=== PATIENT | female | born 1960 | race African-American/Black ===

== ENCOUNTER 2020-01-22 06:22 | Day surgery (SDC) | payer OTHER, BC ==
[2020-01-14 11:23] VITALS: BMI 33.6
[2020-01-22] MEDS ORDERED: TRIAMCINOLONE ACET 40MG/1ML VIAL ONE (07:24)
[2020-01-22] MEDS ORDERED: EPINEPHrine 1:1,000 1 MG/1 ML - 30ML VIAL (INJECTION) ONE (07:24)
[2020-01-22] MEDS ORDERED: BUPIVACAINE HCL/PF 2.5 MG/ML - 30 ML VIAL IJ ONE (07:24)
[2020-01-22] MEDS ORDERED: ROCURONIUM BROMIDE 50 MG/5 ML SYRINGE ONE (07:26)
[2020-01-22] MEDS ORDERED: SUCCINYLCHOLINE CHLORIDE 200 MG/10 ML SYRINGE ONE (07:26)
[2020-01-22] MEDS ORDERED: PROPOFOL 20 ML ONE ×2 (07:26)
[2020-01-22] MEDS ORDERED: EPHEDRINE SULFATE/0.9% NACL/PF 50 MG/10 ML SYRINGE NR ONE (07:26)
[2020-01-22] MEDS ORDERED: DEXAMETHASONE SOD PHOSPHATE 4 MG/1 ML VIAL ONE (08:06)
[2020-01-22] MEDS ORDERED: LIDOCAINE HCL 2% JELLY (5 ML/TUBE) ONE (08:06)
[2020-01-22] MEDS ORDERED: KETOROLAC TROMETHAMINE 30 MG/1 ML VIAL ONE (08:06)
[2020-01-22] MEDS ORDERED: LIDOCAINE HCL/PF 2% SDV 5ML VIAL ONE (08:06)
[2020-01-22] MEDS ORDERED: ceFAZolin SODIUM 1 GM VIAL ONE (08:06)
[2020-01-22] MEDS ORDERED: ONDANSETRON 4 MG/2 ML VIAL ONE (08:06)
--- NOTE | 2020-01-22 09:14 | PN ---
Progress Note (short form) - Note Progress Note: 59F s/p surgical arthroscopy LEFT knee & removal of numerous large loose bodies POD #0. -Pain control: Vicodin, NSADI's PRN - ordered to pharmacy. -Incentive spirometry. -No chemical DVT PPx. -WBAT LLE. -Keep dressing clean & dry; remove dressing on Saturday and cover incisions with water-proof band-aids. -Cane vs crutches PRN. -f/u in [facility] [place] [facility] 7-10 days; call for appointment; . Ed Helton MD (Orthopaedic Surgery).
[2020-01-22] MEDS ORDERED: ONDANSETRON 4 MG/2 ML VIAL IVPUSH PRN (09:15)
[2020-01-22] MEDS ORDERED: oxyCODONE HCL 5 MG TABLET PO PRN ×2 (09:15)
[2020-01-22] MEDS ORDERED: PROMETHAZINE HCL 25 MG/1 ML VIAL IVPUSH PRN (09:15)
--- NOTE | 2020-01-22 09:16 | OP ---
Operative Note - Note: Operative Date: 01/22/20 Pre-Operative Diagnosis: Internal derangement left knee Operation: Surgical arthroscopy left knee with removal of loose bodies. 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
[2020-01-22] MEDS ORDERED: VENLAFAXINE HCL 75 MG E.R. CAPSULES PO SCH (10:00)
[2020-01-22] MEDS ORDERED: PATIENT'S OWN MEDICATION (NON-FORMULARY) (Amlodipine Besylate/Benazepril [Lotrel 10-20 Mg PO SCH (10:00)
[2020-01-22] MEDS ORDERED: oxyCODONE HCL 5 MG TABLET PO ONE (10:05)
[2020-01-22] MEDS ORDERED: oxyCODONE HCL 5 MG TABLET ONE (10:06)
[2020-01-22 10:17] VITALS: TEMP 97.8
[2020-01-22 10:36] VITALS: PULSE 84
[2020-01-22 10:55] VITALS: BP 150/70
--- NOTE | 2020-01-22 18:11 | OP ---
DATE OF OPERATION: DATE OF DICTATION: 01/22/2020 SURGEON: Ed Helton MD EMBOSSOGRAPH OPERATOR: Faraz Helton MD PREOPERATIVE DIAGNOSIS: Medial meniscal tear with osteoarthritis, knee. POSTOPERATIVE DIAGNOSIS: Extensive osteoarthritis and loose bodies, left knee. OPERATION PERFORMED: 1. Arthroscopy, left knee with removal of loose bodies. (47788) 2. Partial synovectomy medial compartment and suprapatellar pouch. (24119) ANESTHESIA: General. ANTIBIOTICS GIVEN: 2 g of Ancef. OPERATION DETAILS: Patient correctly identified. Brought to the operating room. Left lower extremity was prepped, draped in the routine manner with Betadine scrub solution, wiped off with alcohol, DuraPrep applied, a free drape applied. Lateral post leg ghosh utilized. The anterolateral portal was used initially. There was an incision was made alongside the lateral side of the patellar ligament. Arthroscopic instrumentation introduced into the knee with no complications. A full arthroscopic evaluation of the knee performed revealed the following: Extensive loose bodies throughout the knee noted. This included collection of loose bodies in the popliteal hiatus as well as the intracondylar notch. Using a separate anteromedial portal, the 4.5 shaver was introduced predominantly for suction purposed, and shaving loose fragments, which were fairly large, some of them noticeably required shaving in order to extricate them out of the joint. Multiple loose bodies removed. Once 3 L of saline was washed through the knee, the knee appeared to be completely free of loose bodies. Diagnostic arthroscopy was then performed. Revealed the following: The retropatellar surface revealed Outerbridge grade II level changes. The trochlear groove Outerbridge level III changes noted. The medial femoral condyle revealed large divots of defects of hyaline cartilage and extending all the way to the medial femoral condyle as if a large crater had been created in the actual hyaline cartilage. This was trimmed appropriately using the shaver. The medial meniscus was inspected and found to be completely intact. Loose bodies that were caught underneath the meniscus were removed. Tibial plateau itself appeared normal. The lateral compartment was extremely tight. With some perseverance, the scope was introduced into the lateral compartment. Good visualization of the lateral compartment of the lateral side revealed a normal-looking compartment and normal-looking meniscus. The intercondylar notch revealed thickened ligamentum mucosum, but the anterior cruciate ligament was intact. The state of the synovium diffusely throughout was that of very mild, fibrillar synovitic changes. The knee was thoroughly lavaged. The portals were closed with 3-0 nylon, and 1 amp of Depo-Medrol, that is 40 mg with 5 mL of Marcaine instilled into the joint. No complications. MD COLT [id number] MTDD
[2020-01-22] MEDS ORDERED: MONTELUKAST NA 10 MG TABLET PO SCH (22:00)
== END 2020-01-22 10:55 | disposition home or self-care (01) ==
LOC: FASU 06:22
PROVIDERS: ATTEND Orthopaedic Surgery Orthopaedic Surgery of the Spine
PROC: 0SBD4ZZ Excision of Left Knee Joint, Percutaneous Endoscopic Approach (ICD-10-PCS; 2020-01-22)
PROC: 0SCD4ZZ Extirpation of Matter from Left Knee Joint, Percutaneous Endoscopic Approach (ICD-10-PCS; principal; 2020-01-22 08:41)
DX: M17.12 Unilateral primary osteoarthritis, left knee (principal); M23.42 Loose body in knee, left knee
CPT/HCPCS: 94760